=== PATIENT | female | born 2000 | race African-American/Black ===

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

== ENCOUNTER 2020-01-06 16:11 | Emergency (ER) | payer MEDICAID ==
[~2020-01-06] VITALS: Ht 175.3 cm; Wt 98.0 kg
[2020-01-06 16:41] LABS: Urine Bacteria NONE SEEN /hpf (None Seen); Urine Blood Negative /uL (Negative); Urine Mucus FEW (None Seen); Urine Specific Gravity 1.028 (1.001-1.035); Urine WBC 21 /hpf (0 - 5)
[2020-01-06 18:42] VITALS: BP 118/59
== END 2020-01-06 18:42 | disposition home or self-care (01) ==
LOC: ER 16:11
DX: O23.42 Unspecified infection of urinary tract in pregnancy, second trimester (principal); Z3A.19 19 weeks gestation of pregnancy
CPT/HCPCS: 36415; 81001; 81025; 84702

== ENCOUNTER 2024-10-22 09:06 | Emergency (ER) | payer MEDICAID ==
[~2024-10-22] VITALS: Ht 175.3 cm; Wt 100.5 kg
--- NOTE | 2024-10-22 10:20 | ED.PDOC ---
History of Present Illness HPI Comments 24F presents to the ER w/ no prior MHx associated to the c/c of a possible exposure. Pt reports on having a possible exposure to HIV last night and came in today to see if she can get a shot for the possible exposure.Denies chills, fever, N/V/D, SOB, CP. Has any symptoms. States she is not 100% sure the pa brian has HIV but was concerned and wanted to be testing. Chief Complaint: Post Exposure Time Seen by MD: 10:10 Reviewed Notes: Nurses Notes, Medications, Allergies Allergies: Coded Allergies: NO KNOWN ALLERGIES (Unverified , 05/11/10) Information Source: Patient Mode of Arrival: Ambulatory Severity: Moderate Timing: Hours Duration: Since onset, Hours Prehospital treatment: None Past Medical History PAST MEDICAL HISTORY: Denies Surgical History: Denies all surgeries [employer] History: No Pertinent [employer] History Family History Family History: Reviewed,noncontributory to illness, Unknown Social History Smoker: Non-Smoker Alcohol: Denies ETOH Use Drugs: Denies Drug Use Lives In: Home Constitutional: reports: others (possible exposure); denies: chills, diaphoresis, fatigue, fever, malaise, sweats, weakness EENTM: denies: blurred vision, double vision, ear bleeding, ear discharge, ear drainage, ear pain, ear ringing, eye pain, eye redness, hearing loss, mouth pain, mouth swelling, nasal discharge, nose bleeding, nose congestion, nose pain, photophobia, tearing, throat pain, throat swelling, voice changes, others Respiratory: denies: cough, hemoptysis, orthopnea, SOB at rest, shortness of breath, SOB with excertion, stridor, wheezing, others Cardiovascular: denies: chest pain, dizzy spells, diaphoresis, Dyspnea on exertion, edema, irregular heart beat, left arm pain, lightheadedness, palpitations, PND, syncope, others Gastrointestinal: denies: abdomen distended, abdominal pain, blood streaked bowels, constipated, diarrhea, dysphagia, difficulty swallowing, hematemesis, melena, nausea, poor appetite, poor fluid intake, rectal bleeding, rectal pain, vomiting, others Genitourinary: denies: abnormal vagina bleeding, burning, dyspareunia, dysuria, flank pain, frequency, hematuria, incontinence, pain, , vagina discharge , urgency, others Neurological: denies: dizziness, fainting, headache, left sided numbness, left sided weakness, numbness, paresthesia, pre-existing deficit, right sided numbness, right sided weakness, seizure, speech problems, tingling, tremors, weakness, others Musculoskeletal: denies: back pain, gout, joint pain, joint swelling, muscle pain, muscle stiffness, neck pain, others Integumetry: denies: bruises, change in color, change in hair/nails, dryness, laceration, lesions, lumps, rash, wounds, others Allergic/Immunocompromised: denies: Difficulty Healing, Frequent Infections, Hives, Itching, others Hematologic/Lymphatic: denies: anemia, blood clots, easy bleeding, easy bruising, swollen glands, others Endocrine: denies: excessive hunger, excessive sweating, excessive thirst, excessive urination, flushing, intolerance to cold, intolerance to heat, unexplained weight gain, unexplained weight loss, others Psychiatric: denies: anxiety, bipolar disorder, depression, hopeless, panic di sorder, schizophrenia, sleepless, suicidal, others All Other Systems: Reviewed and Negative Physical Exam General Appearance: No Apparent Distress, Normal HEENT: Normal ENT Inspection, Pharynx Normal, TMs Normal Neck: Full Range of Motion, Non-Tender, Normal, Normal Inspection Respiratory: Chest Non-Tender, Lungs Clear, No Accessory Muscle Use, No Respiratory Distress, Normal Breath Sounds Cardiovascular: No Edema, No JVD, No Murmur, No Gallop, Normal Peripheral Pulses, Regular Rate/Rhythm Breast Exam: Deferred Gastrointestinal: No Organomegaly, Non Tender, No Pulsatile Mass, Normal Bowel Sounds, Soft Genitalia: Deferred Pelvic: Deferred Rectal: Deferred Extremities: No calf tenderness, Normal capillary refill, Normal inspection, Normal range of motion, Non-tender, No pedal edema Musculoskeletal : Apperance: Normal Neurologic: Alert, federal appellate law clerk II-XII nml as Tested, No Motor Deficits, Normal Affect, Normal Mood, No Sensory Deficits Cerebellar Function: Normal Reflexes: Normal Skin: Dry, Normal Color, Warm Lymphatic: No Adenopathy Was a procedure done? Was a procedure done?: No Differential Dx Considerations may include: STD X-Ray, Labs, Meds, VS Vital Signs Date Time Temp Pulse Resp B/P (MAP) Pulse Ox O2 Delivery O2 Flow Rate FiO2 7/13/25 09:25 98.2 72 20 118/71 (87) 98 98.2 X-Ray, Labs, Meds, VS Comment Patient seen and examined by me. Patient had unprotected sex yesterday in his concern of HIV exposure. We will do testing here for post exposure and then patient will be prescribed Truvada and a Isentiess. He is meds will be given for 28 days as an outpatient. Patient was count counseled on safe sex practice to prevent further STD exposure. I told her it will take a couple of days before we get the results and she can call back to get the final results of the testing. Time of 1ST Reevaluation: 10:40 Reevaluation 1ST: Unchanged Reevaluation 2ND: Unchanged Patient Education/Counseling: Diagnosis, Treatment, Prognosis Family Education/Counseling: No Family Present SEPSIS Sepsis Screen Date sepsis recognized/suspect: Oct 22, 2024 Time Sepsis recognized/suspect: 918 Recent Procedure: No On Antibiotic Therapy: No Respiratory Rate >20: No Heart Rate >90: No Temp<36 C (96.8 F) or >38.3 C: No SBP <90 or MAP <65 mmHG: No New Acute Mental Status Change: No Is the patient on CPAP, BIPAP,: No Physician Orders Hepatitis B Surface Antibody (10/22/24 10:17) Hepatitis B Surface Antigen (10/22/24 10:17) Hepatitis C Antibody (10/22/24 10:17) Hiv 1&2 Antibody (10/22/24 10:17) Vital Signs Date Time Temp Pulse Resp B/P (MAP) Pulse Ox O2 Delivery O2 Flow Rate FiO2 10/22/24 09:25 98.2 72 20 118/71 (87) 98 98.2 Departure 1 Departure Time of Disposition: 10:37 Impression: Primary Impression: HIV exposure from body fluids Disposition: HOME / SELF CARE / HOMELESS Condition: Good Additional Instructions: Please use safe sex guidelines going further to prevent further exposure Meds need to be taking completely for 28 days for full prophylaxis Please call within 3 days for the final results of your testing. e-Prescriptions Raltegravir Potassium (ISENTRESS) 100 Mg Chw 400 MG OR BID for 28 Days, #56 TAB.CHEW Prov: ISMAEL SUNG DEVELOPMENT MANAGER 10/22/24 Emtricitabine-Tenofovir Disopr (Truvada) Tab 1 TAB PO DAILY for 28 Days, #30 TAB 2 Refills Prov: ISMAEL SUNG [facility] 10/22/24 Tenofovir Disoproxil Fumarate (VIREAD) 250 Mg Tab 300 MG PO DAILY for 28 Days, #34 TAB Prov: ISMAEL SUNG 10/22/24 Discharged With: Self Critical Care Note Critical Care Time?: No Stability Stability form required: No I personally scribed for ER ([email or web address]) on 10/22/24 at 10:20. Electronically submitted by Sukhi Brock ([email or web address]). ER Oct 22, 2024 10:20 ISMAEL SUNG [facility] Oct 22, 2024 10:40
[2024-10-22] MEDS ORDERED: EMTRTAB7 PO (10:34)
[2024-10-22] MEDS ORDERED: RALT100C OR (10:34)
[2024-10-22] MEDS ORDERED: TENO250T PO (10:34)
[2024-10-22 10:59] VITALS: BP 120/70; PULSE 70; RESP 16; TEMP 98; O2SAT 98
[2024-10-23 10:13] LABS: Hepatitis B Surface Antigen Negative (Negative)
== END 2024-10-22 11:01 | disposition home or self-care (01) ==
LOC: ER 09:06
DX: Z20.6 Contact with and (suspected) exposure to human immunodeficiency virus [HIV] (principal)
CPT/HCPCS: 36415; 86703; 86706; 86803; 87340